=== PATIENT | male | born 1985 | race American Indian/Alaskan Native ===

== ENCOUNTER 2019-04-22 12:49 | Emergency (ER) | payer SELFPAY ==
[2019-04-22 13:00] VITALS: BP 101/64
--- NOTE | 2019-04-22 14:41 | XRay Report ---
RIGHT ANKLE 3 VIEWS INDICATION / CLINICAL INFORMATION: Injury last night with right ankle pain and swelling. Limited range of motion. COMPARISON: None available. FINDINGS: BONES / JOINT(S): No acute fracture or subluxation. There is minimal spurring at the insertion of the Achilles tendon on the calcaneus. SOFT TISSUES: There is mild soft tissue swelling overlying the lateral malleolus. ADDITIONAL FINDINGS: None. Signer Name: Sunil Dooley MD Signed: 04/22/2019 2:37 PM Workstation Name: [id number]
[2019-04-22] MEDS ORDERED: IBUPROFEN 800 MG TAB PO ONE (14:56)
--- NOTE | 2019-04-22 14:56 | Emergency Department Report ---
ED Extremity Problem HPI - General Chief complaint: Extremity Injury, Lower Stated complaint: RT ANKLE POSS FRACTURED/PAIN Time Seen by Provider: 04/22/19 14:19 Source: patient Mode of arrival: Ambulatory Limitations: No Limitations - History of Present Illness Initial comments: Patient is a 34-year-old F Afghan male who is presenting with right ankle pain. Patient states he was running helping some people move some things and he twisted the ankle. It inverted. He has pain to the lateral malleoli are area. Patient states pain is worse with bearing weight and movement better with rest. He is kept it elevated overnight. Patient is still unable to bear weight. Severity scale (0 -10): 5 Quality: aching Consistency: constant - Related Data Previous Rx's Medication Instructions Recorded Last Taken Type Ibuprofen [Motrin 800 MG tab] 800 mg PO Q8HR PRN #14 tablet 04/22/19 Unknown Rx Allergies Allergy/AdvReac Type Severity Reaction Status Date / Time amoxicillin Allergy Unknown Verified 04/22/19 12:52 Penicillins Allergy Unknown Verified 04/22/19 12:52 ED Review of Systems ROS: Stated complaint: RT ANKLE POSS FRACTURED/PAIN Other details as noted in HPI Comment: All other systems reviewed and negative ED Past Medical Hx - Past Medical History Previous Medical History?: No - Surgical History Past Surgical History?: No - Medications Home Medications: Home Medications Medication Instructions Recorded Confirmed Last Taken Type Ibuprofen [Motrin 800 MG tab] 800 mg PO Q8HR PRN #14 tablet 04/22/19 Unknown Rx ED Physical Exam - General Limitations: No Limitations General appearance: alert, in no apparent distress - Head Head exam: Present: atraumatic, normocephalic - Eye Eye exam: Present: normal appearance - ENT ENT exam: Present: mucous membranes moist - Neck Neck exam: Present: normal inspection - Respiratory Respiratory exam: Absent: respiratory distress - Cardiovascular Cardiovascular Exam: Present: regular rate, normal rhythm - GI/Abdominal GI/Abdominal exam: Present: soft, normal bowel sounds - Rectal Rectal exam: Present: deferred - Extremities Exam Extremities exam: Present: normal inspection - Expanded Lower Extremity Exam Right Knee exam: Present: normal inspection, full ROM. Absent: tenderness Ankle exam: Present: tenderness (lateral malleolus), swelling. Absent: full ROM - Back Exam Back exam: Present: normal inspection - Neurological Exam Neurological exam: Present: alert, oriented X3 - Psychiatric Psychiatric exam: Present: normal affect, normal mood - Skin Skin exam: Present: warm, dry, intact, normal color. Absent: rash ED Course Vital Signs 04/22/19 12:59 Temperature 98.2 F Pulse Rate 93 H Respiratory 16 Rate Blood Pressure 101/64 [Right] O2 Sat by Pulse 100 Oximetry ED Medical Decision Making - Radiology Data Patient: MICHAEL WALSH MR#: [id number] : 1985 Acct:[id number] Age/Sex: 34 / M ADM Date: 04/22/19 Loc: ED Attending Dr: Ordering Physician: RADHA BOLAÑOS MD Date of Service: 04/22/19 Procedure(s): XR ankle 3+V RT Accession Number(s): [id number] cc: RADHA BOLAÑOS MD Fluoro Time In Minutes: RIGHT ANKLE 3 VIEWS INDICATION / CLINICAL INFORMATION: Injury last night with right ankle pain and swelling. Limited range of motion. COMPARISON: None available. FINDINGS: BONES / JOINT(S): No acute fracture or subluxation. There is minimal spurring at the insertion of the Achilles tendon on the calcaneus. SOFT TISSUES: There is mild soft tissue swelling overlying the lateral malleolus. ADDITIONAL FINDINGS: None. Signer Name: Sunil Dooley MD Signed: 04/22/2019 2:37 PM Workstation Name: [id number] - Medical Decision Making Patient was placed in a posterior leg splint. He was given crutches and medication for pain relief. Patient appears to have a high ankle sprain. Given follow-up with orthopedics. Critical care attestation.: If time is entered above; I have spent that time in minutes in the direct care of this critically ill patient, excluding procedure time. ED Disposition Clinical Impression: High ankle sprain Qualifiers: Encounter type: initial encounter Laterality: right Qualified Code(s): S93.431A - Sprain of tibiofibular ligament of right ankle, initial encounter Disposition: - TO HOME OR SELFCARE Is pt being admited?: No Does the pt Need Aspirin: No Condition: Stable Instructions: Ankle Sprain (ED), Crutch Instructions (ED) Referrals: SUNIL RAUSCH MD [Staff Physician] - 3-5 Days Time of Disposition: 14:55
== END 2019-04-22 15:40 | disposition home or self-care (01) ==
LOC: ED 12:49
DX: S93.431A Sprain of tibiofibular ligament of right ankle, initial encounter (principal); Z88.0 Allergy status to penicillin; Z88.1 Allergy status to other antibiotic agents; X58.XXXA Exposure to other specified factors, initial encounter; Y93.89 Activity, other specified; Y92.89 Other specified places as the place of occurrence of the external cause; Y99.8 Other external cause status

== ENCOUNTER 2021-06-23 19:54 | Emergency (ER) | payer OTHER ==
[2021-06-23 21:00] VITALS: BP 138/84
== END 2021-06-24 02:20 | disposition left against medical advice (07) ==
LOC: ED 19:54
DX: Z01.00 Encounter for examination of eyes and vision without abnormal findings (principal); Z53.21 Procedure and treatment not carried out due to patient leaving prior to being seen by health care provider